=== PATIENT | male | born 1980 | race Caucasian/White ===

== ENCOUNTER 2016-12-11 17:00 | Emergency (ER) | payer OTHER ==
[~2016-12-11] VITALS: Ht 195.6 cm; Wt 102.1 kg
[~2016-12-11 17:00] MED LIST: CLINDAMYCIN HC300 M1 PO; IBUPROFEN800 M1 PO; PERCOCET 5-3251 EACH PO
[2016-12-11 17:07] VITALS: BP 127/74
--- NOTE | 2016-12-11 18:43 | ED ANIMAL BITE/WOUND CHECK ---
History of Present Illness General Chief Complaint: Laceration Procedure Stated Complaint: LAC TO LIP/HIT FACE WITH HAMMER Source: patient Exam Limitations: no limitations Vital Signs & Intake/Output Vital Signs & Intake/Output Vital Signs Date Time Temp Pulse Resp B/P B/P Pulse O2 O2 Flow FiO2 Mean Ox Delivery Rate 12/11 1707 97.3 70 18 127/74 97 Room Air Allergies Coded Allergies: MDX - Amoxicillin (AMOXICILLIN) (UNKNOWN 03/17/16) Reconcile Medications No Known Home Medications Triage Note: PT STATES THAT HE WAS USING HAMMER TO STRIP SIDING OFF HOUSE AND HE SLIPPED CUTTING HIS R UPPER LIP AND CHIPPING HIS TOOTH Triage Nurses Notes Reviewed? yes HPI: Ponce Kay is a 36 yo m w/ dosing of past medical history presenting to the emergency department after sustaining a laceration. Patient states he was removing side stripping from a wall using a hammer when he withdrew the hammer, he accidentally hit himself in the face. Patient said he had immediately dizzy but did not lose consciousness or syncopize. Patient unsure of his tetanus status. Also endorses fracturing his right incisor. He believes he spit out the small piece that was fractured. Patient denies any other physical complaints. (JUAN PABLO SOSA MD) Past History Travel History Traveled to [place] past 21 day No Medical History Any Pertinent Medical History? see below for history Neurological: NONE EENT: NONE Cardiovascular: NONE Respiratory: NONE Gastrointestinal: NONE Hepatic: NONE Renal: NONE Musculoskeletal: NONE Psychiatric: NONE Endocrine: NONE Blood Disorders: NONE Surgical History Surgical History: none Psychosocial History What is your primary language Greenlandic Tobacco Use: Current Daily Use Daily Tobacco Use Amount/Type: => 5 Cigarettes daily ETOH Use: denies use Illicit Drug Use: denies illicit drug use Family History Hx Contributory? Yes (JUAN PABLO SOSA MD) Review of Systems Review of Systems Constitutional: Reports: no symptoms. EENTM: Reports: tooth pain. Respiratory: Reports: no symptoms. Cardiovascular: Reports: no symptoms. GI: Reports: no symptoms. Musculoskeletal: Reports: no symptoms. Skin: Reports: lesions (laceration). Neurological/Psychological: Reports: no symptoms. Hematologic/Endocrine: Reports: no symptoms. Immunologic/Allergic: Reports: no symptoms. All Other Systems: Reviewed and Negative (JUAN PABLO SOSA MD) Physical Exam Physical Exam General Appearance: well developed/nourished, no apparent distress, alert, awake , comfortable Eyes: Bilateral: PERRL, EOMI. Neck: normal inspection, supple Respiratory: normal breath sounds Cardiovascular: regular rate/rhythm Gastrointestinal: soft, non-tender Extremities: normal range of motion Neurologic/Psych: awake, alert, oriented x 3, normal mood/affect Skin: warm/dry, 1 cm thru-n-thru laceration of R upper lip directly above mustache line on R upper lip Lymphatic: no anterior cervical emory (JUAN PABLO SOSA MD) Progress Differential Diagnosis: laceration foreign body infection swallowed tooth fractured tooth Plan of Care: Otherwise healthy 36-year-old male presenting to the ED after sustaining a laceration while using a hammer. Patient noted to have small 1 cm laceration to right upper lip directly along the right border of his mustache. Laceration is a through and through wound to the inner upper lip on the right side. Patient also noted to have a fracture of his right upper incisor. No exposed dentin. No tenderness to palpation or dislocation or increased mobility of the tooth. Patient denies swallowing any parts of the tooth. No LOC. Unknown tetanus status. Patient given tetanus immunization here in the emergency department today as he is unsure when he had his tetanus shot. No evidence of infection. After examination there is no evidence of foreign body. Given that there is no intoxication and the patient was alert and oriented for the entire traumatic incident, I do not suspect that he accidentally swallowed the fractured tooth. Inner lip sutured with one 6-0 chromic gut simple interrupted suture. Outer lip sutured with one 5-0 Prolene suture. Bacitracin applied to the outer lip. Patient tolerated procedure well. Patient discharged home with return precautions and instructions to return in 5-7 days to have his 1 outer lip stitch removed. (JUAN PABLO SOSA MD) Departure Departure Time of Disposition: 1933 Disposition: HOME OR SELF CARE Condition: Stable Clinical Impression Primary Impression: Lip laceration Qualifiers: Encounter type: initial encounter Qualified Code: S01.511A - Laceration without foreign body of lip, initial encounter Secondary Impressions: Tooth fracture Qualifiers: Encounter type: initial encounter Fracture type: closed Qualified Code: S02.5XXA - Fracture of tooth (traumatic), initial encounter for closed fracture Referrals: PATIENT HAS NO PRIMARY CARE DR (PCP/Family) Additional Instructions: Please come back in 5-7 days to have the 1 suture on the R upper lip removed. You can come here to the ED or follow up with your primary care doctor. If you see signs of infection such as redness, swelling, pus, please return to the emergency department for further evaluation. You have also fractured your right incisor. I would recommend that you see a dentist as soon as possible. You can use Motrin 6 or 800 mg every 6-8 hours for the pain as needed. Would also recommend that you get [id number] Orajel and applied directly to the tooth. Departure Forms: Customer Survey General Discharge Information Prescriptions: Current Visit Scripts No Known Home Medications (JUAN PABLO SOSA MD) PA/SENIOR QA TESTER Co-Sign Statement Statement: ED Attending supervision documentation- [] I saw and evaluated the patient. I have also reviewed all the pertinent lab results and diagnostic results. I agree with the findings and the plan of care as documented in the PA's/SENIOR QA TESTER's documentation. [X] I have reviewed the ED Record and agree with the PA's/SENIOR QA TESTER's documentation. [] Additions or exceptions (if any) to the PAs/SENIOR QA TESTER's note and plan are summarized below: [] (SUNNY PICKETT DO) Procedures Laceration/Wound Repair Laceration/Wound Repair: Wound Location: face Wound's Depth, Shape: linear, through n through lip Wound Length (cm): 1 Wound Explored: clean, no foreign body removed Irrigated w/ Saline (ccs): 20 Betadine Prep? No Anesthesia: lidocaine w/ epi Volume Anesthetic (ccs): 5 Wound Debrided: minimal Wound Repaired With: sutures Suture Size/Type: 5:0, proline Number of Sutures: 1 Layer Closure? Yes Deep Layer Suture Size/Type: 6:0, chromic Sterile Dressing Applied: No Tetanus Status: not up to date Progress: Tolerated procedure well (JUAN PABLO SOSA MD)
== END 2016-12-11 19:44 ==
LOC: ERH 17:00
DX: S02.5XXA Fracture of tooth (traumatic), initial encounter for closed fracture (principal); S01.511A Laceration without foreign body of lip, initial encounter; W27.8XXA Contact with other nonpowered hand tool, initial encounter; Y92.9 Unspecified place or not applicable; Y93.9 Activity, unspecified
CPT/HCPCS: 90471; 90714